=== PATIENT | male | born 1945 | race Caucasian/White ===

== ENCOUNTER 2017-07-22 12:26 | Inpatient (IN) | payer MEDICARE ==
[~2017-07-22] VITALS: Ht 177.8 cm; Wt 75.4 kg
[~2017-07-22 12:26] MED LIST: CARV6.252 PO; CYAN10005 PO; ERGO500017 PO; FERR325T16 PO; HYDR12.53 PO; INSU100I18 SQ-INSULIN; INSU100I28 SQ-INSULIN; LISI-170 PO; PANT40TA5 PO; SENN1TAB7 PO; SUCR1ORA5 PO; TRIA15CR3 TP
[2017-07-22] MEDS ORDERED: PANTOPRAZOLE 80 MG in SODIUM CHLORIDE 0.9% 100 ML IV SCH (12:37)
[2017-07-22] MEDS ORDERED: SODIUM CHLORIDE 0.9% 1,000 ML IV ONE (12:37)
[2017-07-22] MEDS ORDERED: PANTOPRAZOLE 40 MG IV ONE (12:50)
[2017-07-22] MEDS ORDERED: PANTOPRAZOLE 40 MG IV IVPush ONE (13:00)
[2017-07-22] MEDS ORDERED: SODIUM CHLORIDE FLUSH 10ML SYR IVF ONE (13:00)
[2017-07-22 13:04] LABS: BASOPHILS # (AUTO) 0.05 x10^3/uL (0-0.1); BASOPHILS % (AUTO) 1 % (0-1); EOSINOPHILS # (AUTO) 0.08 x10^3/uL (0-0.4); EOSINOPHILS % (AUTO) 1 % (1-7); LYMPHOCYTES # (AUTO) 1.46 x10^3/uL (1-3.4); LYMPHOCYTES % (AUTO) 16 % (22-44); MD NO; MEAN CORPUSCULAR HGB CONC 32.4 g/dL (33.2-36.2); MEAN CORPUSCULAR VOLUME 80.3 fL (81-97); MEAN PLATELET VOLUME 8.9 fL (7.4-10.4); MONOCYTES # (AUTO) 0.81 x10^3/uL (0.2-0.8); MONOCYTES % (AUTO) 9 % (2-9); NEUTROPHILS # (AUTO) 6.99 x10^3/uL (1.8-6.8); NEUTROPHILS % (AUTO) 74 % (42-75); PLATELET COUNT 344 x10^3/uL (130-400); RED BLOOD COUNT 3.38 x10^6/uL (4.38-5.82); RED CELL DISTRIBUTION WIDTH 19.6 % (9.4-14.8)
[2017-07-22 13:10] LABS: INTERNATIONAL NORMALIZED RATIO 0.97 (0.93-1.1); PROTHROMBIN TIME 10.1 Seconds (9.6-11.5)
[2017-07-22 13:12] LABS: ANION GAP 8 mmol/L (5-15); CHLORIDE 109 mmol/L (98-107)
[2017-07-22 13:16] LABS: ALANINE AMINOTRANSFERASE 12 U/L (12-78); ALKALINE PHOSPHATASE 87 U/L (45-117); BILIRUBIN,TOTAL 0.3 mg/dL (0.2-1.0); CREATININE 1.15 mg/dL (0.7-1.3)
[2017-07-22] MEDS ORDERED: PROPOFOL 10 MG/ML, 20ML ONE (14:15)
[2017-07-22] MEDS ORDERED: LABETALOL 5MG/ML, 20ML IVPush PRN (14:30)
[2017-07-22] MEDS ORDERED: PROMETHAZINE 25 MG/ML, 1ML IM PRN (14:30)
[2017-07-22] MEDS ORDERED: DOCUSATE 100 MG CAPSULE PO PRN (14:30)
[2017-07-22] MEDS ORDERED: ONDANSETRON 2MG/ML, 2ML IVPush PRN (14:30)
[2017-07-22] MEDS ORDERED: METOCLOPRAMIDE 5 MG/ML, 2ML IVPush PRN (14:30)
[2017-07-22] MEDS ORDERED: POLYETHYLENE GLYCOL 17 GM PACKET PO PRN (14:30)
[2017-07-22] MEDS ORDERED: SODIUM CHLORIDE FLUSH 10ML SYR IVF PRN (14:30)
[2017-07-22] MEDS ORDERED: hydrALAzine 20 MG/ML, 1ML IVPush PRN (14:30)
[2017-07-22] MEDS ORDERED: ONDANSETRON ODT 4 MG PO PRN (14:30)
[2017-07-22] MEDS: INSULIN LISPRO 100 UNITS/ML, PEN SQ-INSULIN SCH (16:00)
[2017-07-22] MEDS: SUCRALFATE 1 GM/10 ML UDC PO SCH (16:52)
[2017-07-22 17:56] LABS: CULTURE INDICATED? YES; MICROSCOPIC INDICATED
[2017-07-22 19:19] VITALS: BP 135/73
[2017-07-23] MEDS: SUCRALFATE 1 GM/10 ML UDC PO SCH ×5 (00:15→19:28)
[2017-07-23] MEDS: INSULIN LISPRO 100 UNITS/ML, PEN SQ-INSULIN SCH ×5 (00:15→22:39)
[2017-07-23] MEDS: INSULIN GLARGINE 100 UNITS/ML, PEN SQ-INSULIN SCH ×3 (00:15→22:39)
[2017-07-23 00:39] VITALS: BP 126/67
[2017-07-23 04:51] LABS: BASOPHILS # (AUTO) 0.07 x10^3/uL (0-0.1); BASOPHILS % (AUTO) 1 % (0-1); EOSINOPHILS # (AUTO) 0.09 x10^3/uL (0-0.4); EOSINOPHILS % (AUTO) 1 % (1-7); LYMPHOCYTES # (AUTO) 1.59 x10^3/uL (1-3.4); LYMPHOCYTES % (AUTO) 23 % (22-44); MD NO; MEAN CORPUSCULAR HEMOGLOBIN 25.6 pg (27.5-34.5); MEAN CORPUSCULAR HGB CONC 31.9 g/dL (33.2-36.2); MEAN CORPUSCULAR VOLUME 80.1 fL (81-97); MEAN PLATELET VOLUME 8.7 fL (7.4-10.4); MONOCYTES # (AUTO) 0.64 x10^3/uL (0.2-0.8); MONOCYTES % (AUTO) 9 % (2-9); NEUTROPHILS # (AUTO) 4.61 x10^3/uL (1.8-6.8); NEUTROPHILS % (AUTO) 66 % (42-75); PLATELET COUNT 308 x10^3/uL (130-400); RED BLOOD COUNT 3.08 x10^6/uL (4.38-5.82); RED CELL DISTRIBUTION WIDTH 19.2 % (9.4-14.8)
[2017-07-23 04:56] LABS: ALBUMIN 2.8 g/dL (3.4-5.0); ANION GAP 6 mmol/L (5-15); CHLORIDE 113 mmol/L (98-107)
[2017-07-23 04:59] LABS: ALANINE AMINOTRANSFERASE 10 U/L (12-78); ALKALINE PHOSPHATASE 80 U/L (45-117); BILIRUBIN,TOTAL 0.5 mg/dL (0.2-1.0); CREATININE 1.28 mg/dL (0.7-1.3); TOTAL PROTEIN 6.3 g/dL (6.4-8.2)
[2017-07-23 07:02] VITALS: BP 108/58
[2017-07-23] MEDS: OMEPRAZOLE 20 MG CAPSULE.DR PO SCH (08:02)
[2017-07-23] MEDS ORDERED: LISI-170 PO (10:03)
[2017-07-23] MEDS ORDERED: SUCR1ORA5 PO (10:04)
[2017-07-23] MEDS ORDERED: PANT40TA5 PO (10:05)
[2017-07-23] MEDS ORDERED: HYDR12.53 PO (10:06)
[2017-07-23] MEDS: FERROUS GLUCONATE 324 MG TABLET PO SCH ×2 (11:46→19:28)
[2017-07-23 14:16] VITALS: BP 134/68
[2017-07-23] MEDS ORDERED: GOLYTELY 4,000ML ORAL.SOL PO SCH (18:00)
[2017-07-23 19:36] VITALS: BP 115/63
[2017-07-24 01:20] VITALS: BP 125/67
[2017-07-24] MEDS: INSULIN LISPRO 100 UNITS/ML, PEN SQ-INSULIN SCH ×4 (07:00→21:06)
[2017-07-24] MEDS: SUCRALFATE 1 GM/10 ML UDC PO SCH ×4 (07:00→21:05)
[2017-07-24 07:16] LABS: BASOPHILS # (AUTO) 0.03 x10^3/uL (0-0.1); BASOPHILS % (AUTO) 1 % (0-1); EOSINOPHILS # (AUTO) 0.05 x10^3/uL (0-0.4); EOSINOPHILS % (AUTO) 1 % (1-7); LYMPHOCYTES # (AUTO) 1.06 x10^3/uL (1-3.4); LYMPHOCYTES % (AUTO) 15 % (22-44); MD NO; MEAN CORPUSCULAR HEMOGLOBIN 25.6 pg (27.5-34.5); MEAN CORPUSCULAR HGB CONC 32.3 g/dL (33.2-36.2); MEAN CORPUSCULAR VOLUME 79.3 fL (81-97); MEAN PLATELET VOLUME 8.3 fL (7.4-10.4); MONOCYTES # (AUTO) 0.56 x10^3/uL (0.2-0.8); MONOCYTES % (AUTO) 8 % (2-9); NEUTROPHILS # (AUTO) 5.21 x10^3/uL (1.8-6.8); NEUTROPHILS % (AUTO) 75 % (42-75); PLATELET COUNT 326 x10^3/uL (130-400); RED BLOOD COUNT 3.14 x10^6/uL (4.38-5.82); RED CELL DISTRIBUTION WIDTH 19.5 % (9.4-14.8)
[2017-07-24 07:28] LABS: ANION GAP 10 mmol/L (5-15); CHLORIDE 109 mmol/L (98-107); CREATININE 1.28 mg/dL (0.7-1.3)
[2017-07-24] MEDS: OMEPRAZOLE 20 MG CAPSULE.DR PO SCH (07:30)
[2017-07-24] MEDS: FERROUS GLUCONATE 324 MG TABLET PO SCH ×2 (07:44→21:05)
[2017-07-24] MEDS: INSULIN GLARGINE 100 UNITS/ML, PEN SQ-INSULIN SCH ×2 (08:19→21:05)
[2017-07-24 08:33] VITALS: BP 135/76
[2017-07-24 13:31] VITALS: BP 148/75
[2017-07-24] MEDS ORDERED: GOLYTELY 4,000ML ORAL.SOL PO ONE (17:00)
[2017-07-24 20:16] VITALS: BP 110/68
[2017-07-25 02:24] VITALS: BP 140/69
[2017-07-25] MEDS: SUCRALFATE 1 GM/10 ML UDC PO SCH ×4 (05:49→20:51)
[2017-07-25] MEDS: INSULIN LISPRO 100 UNITS/ML, PEN SQ-INSULIN SCH ×4 (07:00→20:49)
[2017-07-25 07:25] VITALS: BP 124/65
[2017-07-25] MEDS: FERROUS GLUCONATE 324 MG TABLET PO SCH ×2 (07:29→20:59)
[2017-07-25] MEDS: INSULIN GLARGINE 100 UNITS/ML, PEN SQ-INSULIN SCH ×2 (07:29→21:00)
[2017-07-25] MEDS: OMEPRAZOLE 20 MG CAPSULE.DR PO SCH (07:29)
[2017-07-25 08:15] LABS: BASOPHILS # (AUTO) 0.06 x10^3/uL (0-0.1); BASOPHILS % (AUTO) 1 % (0-1); EOSINOPHILS # (AUTO) 0.07 x10^3/uL (0-0.4); EOSINOPHILS % (AUTO) 1 % (1-7); LYMPHOCYTES # (AUTO) 0.97 x10^3/uL (1-3.4); LYMPHOCYTES % (AUTO) 15 % (22-44); MD NO; MEAN CORPUSCULAR HEMOGLOBIN 25.6 pg (27.5-34.5); MEAN CORPUSCULAR HGB CONC 32.3 g/dL (33.2-36.2); MEAN CORPUSCULAR VOLUME 79.3 fL (81-97); MEAN PLATELET VOLUME 8.6 fL (7.4-10.4); MONOCYTES # (AUTO) 0.59 x10^3/uL (0.2-0.8); MONOCYTES % (AUTO) 9 % (2-9); NEUTROPHILS # (AUTO) 4.85 x10^3/uL (1.8-6.8); NEUTROPHILS % (AUTO) 74 % (42-75); PLATELET COUNT 300 x10^3/uL (130-400); RED BLOOD COUNT 3.03 x10^6/uL (4.38-5.82); RED CELL DISTRIBUTION WIDTH 19.1 % (9.4-14.8)
[2017-07-25 08:28] LABS: ANION GAP 13 mmol/L (5-15); CALCIUM 7.4 mg/dL (8.5-10.1); CHLORIDE 109 mmol/L (98-107); CREATININE 1.08 mg/dL (0.7-1.3)
[2017-07-25] MEDS ORDERED: FENTANYL PF 100 MCG/2ML ONE (09:37)
[2017-07-25] MEDS ORDERED: MIDAZOLAM 1 MG/ML, 5ML ONE (09:37)
[2017-07-25] MEDS: POTASSIUM CHLORIDE 20 MEQ TAB.ER.PRT PO SCH ×2 (12:18→20:59)
[2017-07-25] MEDS: POTASSIUM CHLORIDE 20 MEQ in SODIUM CHLORIDE 0.45% 1,000 ML IV SCH (12:18)
[2017-07-25] MEDS ORDERED: OMNIPAQUE 350 MG/ML, 100ML BOTTLE ONE (13:42)
[2017-07-25 14:12] VITALS: BP 160/77
[2017-07-25 19:41] VITALS: BP 156/76
[2017-07-26] MEDS: POTASSIUM CHLORIDE 20 MEQ in SODIUM CHLORIDE 0.45% 1,000 ML IV SCH ×2 (02:09→16:02)
[2017-07-26 02:39] VITALS: BP 155/80
[2017-07-26 04:58] LABS: ANION GAP 5 mmol/L (5-15); CALCIUM 7.6 mg/dL (8.5-10.1); CHLORIDE 108 mmol/L (98-107); CREATININE 0.85 mg/dL (0.7-1.3)
[2017-07-26 05:01] LABS: BASOPHILS # (AUTO) 0.04 x10^3/uL (0-0.1); BASOPHILS % (AUTO) 1 % (0-1); EOSINOPHILS # (AUTO) 0.11 x10^3/uL (0-0.4); EOSINOPHILS % (AUTO) 1 % (1-7); LYMPHOCYTES # (AUTO) 1.08 x10^3/uL (1-3.4); LYMPHOCYTES % (AUTO) 12 % (22-44); MD NO; MEAN CORPUSCULAR HGB CONC 32.6 g/dL (33.2-36.2); MEAN CORPUSCULAR VOLUME 79.7 fL (81-97); MEAN PLATELET VOLUME 8.6 fL (7.4-10.4); MONOCYTES # (AUTO) 0.78 x10^3/uL (0.2-0.8); MONOCYTES % (AUTO) 9 % (2-9); NEUTROPHILS # (AUTO) 6.85 x10^3/uL (1.8-6.8); NEUTROPHILS % (AUTO) 77 % (42-75); PLATELET COUNT 293 x10^3/uL (130-400); RED BLOOD COUNT 3.08 x10^6/uL (4.38-5.82); RED CELL DISTRIBUTION WIDTH 18.8 % (9.4-14.8)
[2017-07-26] MEDS: OMEPRAZOLE 20 MG CAPSULE.DR PO SCH (07:30)
[2017-07-26] MEDS: FERROUS GLUCONATE 324 MG TABLET PO SCH ×2 (07:30→20:50)
[2017-07-26] MEDS: SUCRALFATE 1 GM/10 ML UDC PO SCH ×4 (07:30→20:50)
[2017-07-26] MEDS: TAMSULOSIN 0.4 MG CAP.ER.24H PO SCH (07:30)
[2017-07-26] MEDS: INSULIN LISPRO 100 UNITS/ML, PEN SQ-INSULIN SCH ×4 (07:30→20:50)
[2017-07-26] MEDS: INSULIN GLARGINE 100 UNITS/ML, PEN SQ-INSULIN SCH ×2 (07:31→20:50)
[2017-07-26 08:18] VITALS: BP 155/71
[2017-07-26] MEDS: IRON SUCROSE COMPLEX 100MG/5ML IV SCH (09:23)
[2017-07-26 14:02] VITALS: BP 126/66
[2017-07-26 20:05] VITALS: BP 136/65
[2017-07-27 01:23] VITALS: BP 153/66
[2017-07-27] MEDS: SUCRALFATE 1 GM/10 ML UDC PO SCH ×4 (06:05→20:52)
[2017-07-27] MEDS: POTASSIUM CHLORIDE 20 MEQ in SODIUM CHLORIDE 0.45% 1,000 ML IV SCH (06:05)
[2017-07-27] MEDS ORDERED: MIDAZOLAM 1 MG/ML, 2ML ONE (07:06)
[2017-07-27] MEDS ORDERED: FENTANYL PF 100 MCG/2ML ONE ×2 (07:06→09:32)
[2017-07-27] MEDS ORDERED: GABAPENTIN 300 MG CAPSULE ONE (07:16)
[2017-07-27] MEDS ORDERED: OxyconTIN ER 10 MG TAB.ER ONE (07:17)
[2017-07-27] MEDS ORDERED: CEFOTETAN 2 GM ONE (07:29)
[2017-07-27] MEDS ORDERED: KETOROLAC 30 MG/1 ML ONE (07:29)
[2017-07-27] MEDS ORDERED: PHENYLEPHRINE 10 MG/ML ONE (07:29)
[2017-07-27] MEDS ORDERED: ACETAMINOPHEN 500 MG TABLET PO ONE (07:30)
[2017-07-27] MEDS ORDERED: GABAPENTIN 300 MG CAPSULE PO ONE (07:30)
[2017-07-27] MEDS ORDERED: OxyconTIN ER 10 MG TAB.ER PO ONE (07:30)
[2017-07-27] MEDS: INSULIN LISPRO 100 UNITS/ML, PEN SQ-INSULIN SCH ×4 (08:25→22:28)
[2017-07-27] MEDS: TAMSULOSIN 0.4 MG CAP.ER.24H PO SCH (08:25)
[2017-07-27] MEDS: INSULIN GLARGINE 100 UNITS/ML, PEN SQ-INSULIN SCH ×2 (08:26→21:16)
[2017-07-27] MEDS: OMEPRAZOLE 20 MG CAPSULE.DR PO SCH (08:26)
[2017-07-27] MEDS: FERROUS GLUCONATE 324 MG TABLET PO SCH ×2 (08:26→20:52)
[2017-07-27] MEDS ORDERED: PROMETHAZINE 25 MG/ML, 1ML IV PRN (08:30)
[2017-07-27] MEDS ORDERED: ALBUTEROL SULFATE 2.5 MG/3 ML NPPB PRN (08:30)
[2017-07-27] MEDS ORDERED: LABETALOL 5MG/ML, 20ML IV PRN (08:30)
[2017-07-27] MEDS ORDERED: ONDANSETRON 2MG/ML, 2ML IVPush PRN ×2 (08:30→10:00)
[2017-07-27] MEDS ORDERED: OXYcodone 5 MG/5 ML ORAL.SOL UDC PO PRN (08:30)
[2017-07-27] MEDS ORDERED: MIDAZOLAM 1 MG/ML, 2ML IV PRN (08:30)
[2017-07-27] MEDS ORDERED: ACETAMINOPHEN 325 MG TABLET PO PRN (08:30)
[2017-07-27] MEDS ORDERED: PROMETHAZINE 12.5 MG SUPP PR PRN (08:30)
[2017-07-27] MEDS ORDERED: EPHEDRINE 50 MG/ML, 1ML IVPush PRN (08:30)
[2017-07-27] MEDS ORDERED: hydrALAzine 20 MG/ML, 1ML IV PRN (08:30)
[2017-07-27] MEDS ORDERED: morphine SULFATE 10 MG/ML, 1ML IV PRN (08:30)
[2017-07-27] MEDS ORDERED: DIAZEPAM 5 MG/ML, 2ML IVPush PRN (08:30)
[2017-07-27] MEDS ORDERED: METOPROLOL 1 MG/ML, 5ML IV PRN (08:30)
[2017-07-27] MEDS ORDERED: MEPERIDINE/PF 25MG/0.5ML IVPush PRN (08:30)
[2017-07-27] MEDS ORDERED: EPHEDRINE 50 MG/ML, 1ML ONE (09:00)
[2017-07-27] MEDS ORDERED: SUCCINYLCHOLINE 20 MG/ML, 10ML ONE (09:00)
[2017-07-27] MEDS ORDERED: ONDANSETRON 2MG/ML, 2ML ONE (09:00)
[2017-07-27] MEDS ORDERED: GLYCOPYRROLATE 0.2MG/1ML, 5ML ONE (09:00)
[2017-07-27] MEDS ORDERED: NEOSTIGMINE 1 MG/ML, 10ML ONE (09:00)
[2017-07-27] MEDS ORDERED: PROPOFOL 10 MG/ML, 20ML ONE (09:00)
[2017-07-27] MEDS ORDERED: ROCURONIUM 10 MG/ML,10ML ONE (09:00)
[2017-07-27] MEDS ORDERED: VASOPRESSIN 20 UNIT/ML, 1ML ONE (09:00)
[2017-07-27] MEDS: FENTANYL PF 100 MCG/2ML IV PRN ×2 (09:40→10:05)
[2017-07-27] MEDS ORDERED: HALOPERIDOL 5 MG/ML IVPush PRN (10:00)
[2017-07-27] MEDS ORDERED: MORPHINE SULFATE 4 MG/ML, 1ML IVPush PRN (10:00)
[2017-07-27] MEDS ORDERED: OXYcodone IR 5MG TABLET PO PRN (10:00)
[2017-07-27] MEDS: ACETAMINOPHEN 500 MG TABLET PO SCH ×3 (10:00→22:27)
[2017-07-27] MEDS: D5%-0.45NACL+KCL 20MEQ 1,000 ML IV SCH (12:15)
[2017-07-27 12:16] VITALS: BP 95/49
[2017-07-27] MEDS: IRON SUCROSE COMPLEX 100MG/5ML IV SCH (13:49)
[2017-07-27] MEDS: IBUPROFEN 800 MG TABLET PO SCH ×2 (16:01→20:52)
[2017-07-27 19:42] VITALS: BP 134/64
[2017-07-27 20:51] VITALS: BP 98/48
[2017-07-27 22:19] VITALS: BP 100/50
[2017-07-27 22:23] VITALS: BP 78/45
[2017-07-27] MEDS ORDERED: SODIUM CHLORIDE 0.9% 1,000ML IVBOLUS ONE (22:30)
[2017-07-28 00:15] VITALS: BP 97/49
[2017-07-28] MEDS ORDERED: SODIUM CHLORIDE 0.9% 1,000ML IVBOLUS ONE (02:30)
[2017-07-28] MEDS: ACETAMINOPHEN 500 MG TABLET PO SCH ×4 (04:42→21:09)
[2017-07-28 05:10] VITALS: BP 90/48
[2017-07-28] MEDS: D5%-0.45NACL+KCL 20MEQ 1,000 ML IV SCH (05:34)
[2017-07-28] MEDS: INSULIN LISPRO 100 UNITS/ML, PEN SQ-INSULIN SCH ×4 (07:00→20:57)
[2017-07-28 07:15] VITALS: BP 148/65
[2017-07-28] MEDS: SUCRALFATE 1 GM/10 ML UDC PO SCH ×4 (08:48→21:09)
[2017-07-28] MEDS: OMEPRAZOLE 20 MG CAPSULE.DR PO SCH (08:48)
[2017-07-28] MEDS: IBUPROFEN 800 MG TABLET PO SCH ×3 (08:48→21:09)
[2017-07-28] MEDS: FERROUS GLUCONATE 324 MG TABLET PO SCH ×2 (08:49→21:09)
[2017-07-28] MEDS: ENOXAPARIN 40 MG/0.4 ML SQ SCH (08:49)
[2017-07-28] MEDS: INSULIN GLARGINE 100 UNITS/ML, PEN SQ-INSULIN SCH ×2 (08:49→21:09)
[2017-07-28] MEDS: TAMSULOSIN 0.4 MG CAP.ER.24H PO SCH (08:49)
[2017-07-28] MEDS: IRON SUCROSE COMPLEX 100MG/5ML IV SCH (08:49)
[2017-07-28 09:28] LABS: MEAN CORPUSCULAR HEMOGLOBIN 25.9 pg (27.5-34.5); MEAN CORPUSCULAR HGB CONC 31.8 g/dL (33.2-36.2); MEAN CORPUSCULAR VOLUME 81.4 fL (81-97); MEAN PLATELET VOLUME 8.9 fL (7.4-10.4); PLATELET COUNT 287 x10^3/uL (130-400); RED CELL DISTRIBUTION WIDTH 18.9 % (9.4-14.8)
[2017-07-28 09:33] LABS: ANION GAP 4 mmol/L (5-15); CALCIUM 6.9 mg/dL (8.5-10.1); CHLORIDE 109 mmol/L (98-107); CREATININE 1.21 mg/dL (0.7-1.3)
[2017-07-28 10:18] LABS: BASOPHILS # (AUTO) 0.07 x10^3/uL (0-0.1); BASOPHILS % (AUTO) 1 % (0-1); EOSINOPHILS # (AUTO) 0.07 x10^3/uL (0-0.4); EOSINOPHILS % (AUTO) 1 % (1-7); LYMPHOCYTES # (AUTO) 0.85 x10^3/uL (1-3.4); LYMPHOCYTES % (AUTO) 8 % (22-44); MD MORPH REVIEW ONLY; MONOCYTES # (AUTO) 0.82 x10^3/uL (0.2-0.8); MONOCYTES % (AUTO) 8 % (2-9); NEUTROPHILS # (AUTO) 9.09 x10^3/uL (1.8-6.8); NEUTROPHILS % (AUTO) 83 % (42-75)
[2017-07-28 10:19] LABS: ANISOCYTOSIS 1+; MICROCYTOSIS 1+; OVALOCYTES 1+; POLYCHROMASIA 1+
[2017-07-28 10:20] LABS: <PLATELET ESTIMATE> ADEQUATE; <PLT MORPHOLOGY> NORMAL PLT MORPH
[2017-07-28] MEDS: POTASSIUM CHLORIDE 10 MEQ in LACTATED RINGERS 1,000 ML IV SCH (10:45)
[2017-07-28 14:11] VITALS: BP 106/63
[2017-07-28 19:28] VITALS: BP 117/70
[2017-07-29] MEDS: ACETAMINOPHEN 500 MG TABLET PO SCH ×4 (04:03→22:12)
[2017-07-29 08:43] VITALS: BP 153/77
[2017-07-29] MEDS: SUCRALFATE 1 GM/10 ML UDC PO SCH ×4 (09:14→22:04)
[2017-07-29] MEDS: POTASSIUM CHLORIDE 10 MEQ in LACTATED RINGERS 1,000 ML IV SCH (09:14)
[2017-07-29] MEDS: TAMSULOSIN 0.4 MG CAP.ER.24H PO SCH (09:15)
[2017-07-29] MEDS: FERROUS GLUCONATE 324 MG TABLET PO SCH ×2 (09:15→22:04)
[2017-07-29] MEDS: IBUPROFEN 800 MG TABLET PO SCH ×3 (09:15→22:04)
[2017-07-29] MEDS: ENOXAPARIN 40 MG/0.4 ML SQ SCH (09:16)
[2017-07-29] MEDS: INSULIN LISPRO 100 UNITS/ML, PEN SQ-INSULIN SCH ×4 (09:16→22:04)
[2017-07-29] MEDS: IRON SUCROSE COMPLEX 100MG/5ML IV SCH (09:20)
[2017-07-29] MEDS: OMEPRAZOLE 20 MG CAPSULE.DR PO SCH (09:24)
[2017-07-29] MEDS: INSULIN GLARGINE 100 UNITS/ML, PEN SQ-INSULIN SCH ×2 (09:25→22:21)
[2017-07-29 13:54] VITALS: BP 143/72
[2017-07-29 16:35] LABS: CLOSTRIDIUM DIFFICILE ANTIGEN NEGATIVE; CLOSTRIDIUM DIFFICILE TOXIN NEGATIVE (Negative)
[2017-07-29 19:00] VITALS: BP 108/60
[2017-07-30] MEDS: ACETAMINOPHEN 500 MG TABLET PO SCH ×4 (03:44→22:28)
[2017-07-30 07:34] VITALS: BP 131/66
[2017-07-30 07:50] LABS: ALBUMIN 1.8 g/dL (3.4-5.0); ANION GAP 3 mmol/L (5-15); CHLORIDE 113 mmol/L (98-107); CREATININE 1.22 mg/dL (0.7-1.3)
[2017-07-30] MEDS: INSULIN LISPRO 100 UNITS/ML, PEN SQ-INSULIN SCH ×4 (08:00→21:00)
[2017-07-30 08:07] LABS: BASOPHILS # (AUTO) 0.08 x10^3/uL (0-0.1); BASOPHILS % (AUTO) 1 % (0-1); EOSINOPHILS # (AUTO) 0.18 x10^3/uL (0-0.4); EOSINOPHILS % (AUTO) 2 % (1-7); LYMPHOCYTES # (AUTO) 0.85 x10^3/uL (1-3.4); LYMPHOCYTES % (AUTO) 7 % (22-44); MD NO; MEAN CORPUSCULAR HEMOGLOBIN 25.6 pg (27.5-34.5); MEAN CORPUSCULAR HGB CONC 31.6 g/dL (33.2-36.2); MEAN CORPUSCULAR VOLUME 81.1 fL (81-97); MONOCYTES # (AUTO) 0.62 x10^3/uL (0.2-0.8); MONOCYTES % (AUTO) 5 % (2-9); NEUTROPHILS # (AUTO) 10.02 x10^3/uL (1.8-6.8); NEUTROPHILS % (AUTO) 85 % (42-75); PLATELET COUNT 343 x10^3/uL (130-400); RED BLOOD COUNT 3.23 x10^6/uL (4.38-5.82); RED CELL DISTRIBUTION WIDTH 19.2 % (9.4-14.8)
[2017-07-30] MEDS ORDERED: POTASSIUM CHLORIDE 20 MEQ TAB.ER.PRT PO ONE (08:30)
[2017-07-30] MEDS: INSULIN GLARGINE 100 UNITS/ML, PEN SQ-INSULIN SCH ×2 (09:00→22:28)
[2017-07-30] MEDS: SUCRALFATE 1 GM/10 ML UDC PO SCH ×4 (10:21→22:27)
[2017-07-30] MEDS: FERROUS GLUCONATE 324 MG TABLET PO SCH ×2 (10:22→22:27)
[2017-07-30] MEDS: OMEPRAZOLE 20 MG CAPSULE.DR PO SCH (10:22)
[2017-07-30] MEDS: IRON SUCROSE COMPLEX 100MG/5ML IV SCH (10:22)
[2017-07-30] MEDS: IBUPROFEN 800 MG TABLET PO SCH ×3 (10:23→22:27)
[2017-07-30] MEDS: TAMSULOSIN 0.4 MG CAP.ER.24H PO SCH (10:23)
[2017-07-30] MEDS: ENOXAPARIN 40 MG/0.4 ML SQ SCH (10:24)
[2017-07-30 13:41] VITALS: BP 130/75
[2017-07-30 20:00] VITALS: BP 149/69
[2017-07-31 02:00] VITALS: BP 144/67
[2017-07-31] MEDS: ACETAMINOPHEN 500 MG TABLET PO SCH ×4 (06:24→22:02)
[2017-07-31] MEDS: SUCRALFATE 1 GM/10 ML UDC PO SCH ×4 (06:24→22:02)
[2017-07-31] MEDS: INSULIN LISPRO 100 UNITS/ML, PEN SQ-INSULIN SCH ×4 (07:00→21:00)
[2017-07-31 07:59] VITALS: BP 146/78
[2017-07-31] MEDS: TAMSULOSIN 0.4 MG CAP.ER.24H PO SCH (08:37)
[2017-07-31] MEDS: OMEPRAZOLE 20 MG CAPSULE.DR PO SCH (08:37)
[2017-07-31] MEDS: FERROUS GLUCONATE 324 MG TABLET PO SCH ×2 (08:37→22:02)
[2017-07-31] MEDS: IRON SUCROSE COMPLEX 100MG/5ML IV SCH (08:37)
[2017-07-31] MEDS: POTASSIUM CHLORIDE 20 MEQ TAB.ER.PRT PO SCH (08:37)
[2017-07-31] MEDS: IBUPROFEN 800 MG TABLET PO SCH ×3 (08:49→22:02)
[2017-07-31] MEDS: ENOXAPARIN 40 MG/0.4 ML SQ SCH (10:58)
[2017-07-31] MEDS: INSULIN GLARGINE 100 UNITS/ML, PEN SQ-INSULIN SCH ×2 (11:07→21:40)
[2017-07-31 14:35] VITALS: BP 136/74
[2017-07-31 20:20] VITALS: BP 153/76
[2017-08-01 01:42] VITALS: BP 162/78
[2017-08-01] MEDS: ACETAMINOPHEN 500 MG TABLET PO SCH (04:46)
[2017-08-01] MEDS: SUCRALFATE 1 GM/10 ML UDC PO SCH ×3 (06:42→16:10)
[2017-08-01] MEDS: INSULIN LISPRO 100 UNITS/ML, PEN SQ-INSULIN SCH ×3 (07:25→16:11)
[2017-08-01] MEDS: INSULIN GLARGINE 100 UNITS/ML, PEN SQ-INSULIN SCH (07:26)
[2017-08-01] MEDS: OMEPRAZOLE 20 MG CAPSULE.DR PO SCH (07:27)
[2017-08-01] MEDS: TAMSULOSIN 0.4 MG CAP.ER.24H PO SCH (07:27)
[2017-08-01] MEDS: POTASSIUM CHLORIDE 20 MEQ TAB.ER.PRT PO SCH (07:27)
[2017-08-01] MEDS: FERROUS GLUCONATE 324 MG TABLET PO SCH (07:27)
[2017-08-01] MEDS: IRON SUCROSE COMPLEX 100MG/5ML IV SCH (07:27)
[2017-08-01] MEDS: IBUPROFEN 800 MG TABLET PO SCH (07:27)
[2017-08-01 07:44] VITALS: BP 163/82
[2017-08-01] MEDS: ENOXAPARIN 40 MG/0.4 ML SQ SCH (10:59)
[2017-08-01 13:56] VITALS: BP 119/66
[2017-08-01] MEDS ORDERED: TAMS-11 PO (14:49)
[2017-08-01] MEDS ORDERED: SUCR1ORA5 PO (14:49)
== END 2017-08-01 18:13 | DRG 329 ==
LOC: ED 14:04 → EDIP 14:28 → 3NW 15:49
PROVIDERS: ADMIT Family Medicine; ATTEND Family Medicine
PROC: 0DJ08ZZ Inspection of Upper Intestinal Tract, Via Natural or Artificial Opening Endoscopic (ICD-10-PCS; principal; 2017-07-22 14:10)
PROC: 0DBK8ZX Excision of Ascending Colon, Via Natural or Artificial Opening Endoscopic, Diagnostic (ICD-10-PCS; 2017-07-25)
PROC: 0DBL8ZZ Excision of Transverse Colon, Via Natural or Artificial Opening Endoscopic (ICD-10-PCS; 2017-07-25)
PROC: 0DTF0ZZ Resection of Right Large Intestine, Open Approach (ICD-10-PCS; 2017-07-27)
DX: C18.9 Malignant neoplasm of colon, unspecified (principal); E43 Unspecified severe protein-calorie malnutrition; E87.0 Hyperosmolality and hypernatremia; C78.7 Secondary malignant neoplasm of liver and intrahepatic bile duct; D62 Acute posthemorrhagic anemia; N13.30 Unspecified hydronephrosis; E44.0 Moderate protein-calorie malnutrition; N39.0 Urinary tract infection, site not specified; D50.9 Iron deficiency anemia, unspecified; E11.9 Type 2 diabetes mellitus without complications; E87.6 Hypokalemia; I10 Essential (primary) hypertension; I25.10 Atherosclerotic heart disease of native coronary artery without angina pectoris; I45.10 Unspecified right bundle-branch block; K76.9 Liver disease, unspecified; Z83.3 Family history of diabetes mellitus; Z79.4 Long term (current) use of insulin; Z87.19 Personal history of other diseases of the digestive system; Z87.891 Personal history of nicotine dependence; Z91.81 History of falling; R19.7 Diarrhea, unspecified; Z68.23 Body mass index [BMI] 23.0-23.9, adult
CPT/HCPCS: 36415; 71260; 74177; 80048; 80053; 81001; 82040; 82378; 82728; 82962; 83540; 83550; 83605; 83690; 83735; 84100; 85025; 85610; 85730; 86850; 86900; 87086; 87324; 88305; 88309; 88329; 93005; 96365; 96375; 99152; 99153; J1650; J1756; J1885; J2250; J2405; J2704; J2710; J3010; J3480; J3490; Q9967; A4648; C9113; J0330; J1815; J2370; J7030; J7120; S0074

== ENCOUNTER 2018-12-17 20:48 | Inpatient (IN) | payer MEDICARE ==
[~2018-12-17] VITALS: Ht 177.8 cm; Wt 69.6 kg
[2018-12-24 07:40] VITALS: BP 169/71
== END 2018-12-24 11:08 | disposition hospice, home (50) | DRG 640 ==
LOC: ED 23:44 → EDIP 23:49 → ED 12-18 00:05 → 3NW 12-18 00:55
PROVIDERS: ADMIT Internal Medicine; ATTEND Internal Medicine
DX: E86.0 Dehydration (principal); E43 Unspecified severe protein-calorie malnutrition; G82.20 Paraplegia, unspecified; C78.02 Secondary malignant neoplasm of left lung; C78.01 Secondary malignant neoplasm of right lung; C79.51 Secondary malignant neoplasm of bone; R53.1 Weakness; R33.9 Retention of urine, unspecified; K29.70 Gastritis, unspecified, without bleeding; E11.9 Type 2 diabetes mellitus without complications; I10 Essential (primary) hypertension; I16.0 Hypertensive urgency; K21.9 Gastro-esophageal reflux disease without esophagitis; Z51.5 Encounter for palliative care; Z66 Do not resuscitate; Z79.4 Long term (current) use of insulin; Z85.038 Personal history of other malignant neoplasm of large intestine; Z87.891 Personal history of nicotine dependence; Z68.22 Body mass index [BMI] 22.0-22.9, adult
CPT/HCPCS: 36415; 71045; 72158; 80048; 80053; 81001; 82962; 83036; 84134; 85025; 87086; 99285; A9585; G0378; J1650; J0360; J1815; J7030